=== PATIENT | male | born 1955 | race Two or more races ===

== ENCOUNTER 2017-05-14 16:11 | Emergency (ER) | payer MEDICAID ==
[~2017-05-14] VITALS: Ht 177.8 cm; Wt 97.5 kg
[2017-05-14 17:03] LABS: Basophils # (auto) 0 uL; Basophils % (auto) 0.2 % (0.0-2.0); CONDITION Y; Eosinophils # (auto) 0.3 uL; Eosinophils % (auto) 3.5 % (0.0-7.0); Hematocrit 48.6 % (41.0-53.0); Hemoglobin 16.8 g/dL (13.5-17.5); Lymphocytes # (auto) 1.7 uL; Lymphocytes % (auto) 22.8 % (10.0-50.0); Mean Corpuscular Hemoglobin 31.4 pg (28.0-32.0); Mean Corpuscular Hgb Conc. 34.5 g/dL (32.0-36.0); Mean Corpuscular Volume 90.9 fL (80.0-100.0); Mean Platelet Volume 10.9 fL (7.4-10.4); Monocytes # (auto) 0.5 uL; Monocytes % (auto) 7.2 % (0.0-12.0); Neutrophils # (auto) 4.9 uL; Neutrophils % (auto) 66.3 % (37.0-80.0); Platelet Count (auto) 89 10^3/uL (140-450); Red Cell Distribution Width 13.7 % (11.6-16.0); White Blood Cell 7.4 10^3/uL (4.4-10.8)
[2017-05-14 18:01] LABS: Albumin 3.9 g/dL (3.4-5.0); BUN/Creatinine Ratio 25.8; Bilirubin, Total 2.6 mg/dL (0.2-1.0); Calcium 8.8 mg/dL (8.5-10.1); Total Protein 8.2 g/dL (6.4-8.2)
[2017-05-14 18:08] LABS: Potassium 3.3 mmol/L (3.5-5.1)
[2017-05-14 19:30] VITALS: BP 140/93
[2017-05-16 09:20] LABS: Hepatitis B Surface Antibody Positive
== END 2017-05-14 19:34 | disposition home or self-care (01) ==
LOC: ER 16:15
DX: F20.9 Schizophrenia, unspecified (principal); D69.6 Thrombocytopenia, unspecified; E11.9 Type 2 diabetes mellitus without complications
CPT/HCPCS: 36415; 80053; 85025; 86704; 86706; 86708; 86803; 87340

== ENCOUNTER 2019-04-12 13:03 | Emergency (ER) | payer MEDICAID ==
[~2019-04-12] VITALS: Ht 177.8 cm; Wt 104.3 kg
[~2019-04-12 13:03] MED LIST: ASEN10SU3 SL; ASPI-378 PO; ATOR20TA50 PO; BENZ1TAB2 PO; BUPR-60 PO; CHOL200031 PO; CITA-73 PO; INSU1INJ19 SC; LISI10TA6 PO; LURA1TAB2 PO; METF-929 PO; METO25TA5 PO; OLAN20TA30 PO; TERB250T66 PO
[2019-04-12 13:46] LABS: Basophils # (auto) 0 uL; Basophils % (auto) 0.3 % (0.0-2.0); Eosinophils # (auto) 0.2 uL; Eosinophils % (auto) 1.3 % (0.0-7.0); Hematocrit 27.1 % (41.0-53.0); Hemoglobin 9.3 g/dL (13.5-17.5); Lymphocytes # (auto) 2.6 uL; Lymphocytes % (auto) 19.5 % (10.0-50.0); Mean Corpuscular Hemoglobin 30.3 pg (28.0-32.0); Mean Corpuscular Hgb Conc. 34.2 g/dL (32.0-36.0); Mean Corpuscular Volume 88.5 fL (80.0-100.0); Monocytes # (auto) 0.7 uL; Monocytes % (auto) 5.4 % (0.0-12.0); Neutrophils # (auto) 9.8 uL; Neutrophils % (auto) 73.5 % (37.0-80.0); Nucleated Red Blood Cells % 0.2 %; Platelet Count (auto) 174 10^3/uL (140-450); Red Blood Cells 3.06 10^6/uL (4.5-5.90); White Blood Cell 13.4 10^3/uL (4.4-10.8)
[2019-04-12 14:07] LABS: Albumin 3.4 g/dL (3.4-5.0); Anion Gap 8 (5-15); Aspartate Aminotransferase 20 U/L (15-37); BUN/Creatinine Ratio 46.8; Blood Urea Nitrogen 37 mg/dL (7-18); Calcium 8.3 mg/dL (8.5-10.1); Carbon Dioxide 23 mmol/L (21-32); Chloride 112 mmol/L (98-107); GFR African American 128 mL/min; GFR Non-African American 106 mL/min; Glucose 147 mg/dL (74-106); Potassium 3.7 mmol/L (3.5-5.1); Sodium 143 mmol/L (136-145)
[2019-04-12 14:17] LABS: Alkaline Phosphatase 69 U/L (45-117); Bilirubin, Total 0.8 mg/dL (0.2-1.0); Total Protein 7.2 g/dL (6.4-8.2)
[2019-04-12 14:24] LABS: Alanine Aminotransferase 30 U/L (16-61)
[2019-04-12 16:41] VITALS: BP 130/80
== END 2019-04-12 16:55 | disposition home or self-care (01) ==
LOC: ER 13:03
DX: J40 Bronchitis, not specified as acute or chronic (principal); M25.531 Pain in right wrist; E11.9 Type 2 diabetes mellitus without complications; E78.5 Hyperlipidemia, unspecified; I10 Essential (primary) hypertension; F17.210 Nicotine dependence, cigarettes, uncomplicated; Z79.899 Other long term (current) drug therapy; Z79.82 Long term (current) use of aspirin; Z79.4 Long term (current) use of insulin
CPT/HCPCS: 36415; 70450; 73100; 73120; 80053; 82962; 84484; 85025; 93005

== ENCOUNTER 2019-12-13 20:00 | Inpatient (IN) | payer MEDICAID ==
[~2019-12-13] VITALS: Ht 175.3 cm; Wt 99.8 kg
[2019-12-13] MEDS ORDERED: DEXTROSE 10% 1,000 ML IV ONE (20:15)
[2019-12-13] MEDS ORDERED: DEXTROSE (50%) 50ML SYRG IV ONE ×4 (20:15→21:00)
[2019-12-13] MEDS ORDERED: ACCU-CHEK COMFORT CURVE STRIP VI ONE ×4 (20:15→21:00)
[2019-12-13 22:18] LABS: Neutrophils % (auto) 85.7 % (37.0-80.0); White Blood Cell 9.4 10^3/uL (4.4-10.8)
[2019-12-13 22:19] LABS: Basophils # (auto) 0 10 ^3/uL (0-0.2); Basophils % (auto) 0.1 % (0.0-2.0); Eosinophils # (auto) 0.1 10 ^3/uL (0-0.8); Eosinophils % (auto) 0.8 % (0.0-7.0); Hematocrit 37.8 % (41.0-53.0); Lymphocytes # (auto) 0.6 10 ^3/uL (0.4-5.4); Lymphocytes % (auto) 6.5 % (10.0-50.0); Mean Corpuscular Hemoglobin 29.2 pg (28.0-32.0); Mean Corpuscular Hgb Conc. 34.4 g/dL (32.0-36.0); Monocytes # (auto) 0.6 10 ^3/uL (0-1.3); Monocytes % (auto) 6.9 % (0.0-12.0); Platelet Count (auto) 80 10^3/uL (140-450); Red Blood Cells 4.45 10^6/uL (4.5-5.90); Red Cell Distribution Width 15.6 % (11.8-14.3)
[2019-12-13 22:38] LABS: Chloride 106 mmol/L (98-107); Potassium 3.6 mmol/L (3.5-5.1); Sodium 138 mmol/L (136-145)
[2019-12-13 22:40] LABS: INR 1.15 (0.9-1.15); Partial Thromboplastin Time 29.9 sec (23.64-32.05)
[2019-12-13 22:48] LABS: Alanine Aminotransferase 22 U/L (16-61); Albumin 3.7 g/dL (3.4-5.0); Alkaline Phosphatase 108 U/L (45-117); Anion Gap 6 (5-15); Aspartate Aminotransferase 24 U/L (15-37); BUN/Creatinine Ratio 15.8; Bilirubin, Total 1.2 mg/dL (0.2-1.0); Blood Urea Nitrogen 21 mg/dL (7-18); Carbon Dioxide 26 mmol/L (21-32); GFR African American 70 mL/min; GFR Non-African American 58 mL/min; Magnesium 2.2 mg/dL (1.6-2.6)
[2019-12-13 22:55] LABS: Urine Bacteria NONE SEEN /hpf (None Seen); Urine Blood Negative /uL (Negative); Urine Specific Gravity 1.012 (1.001-1.035); Urine WBC <1 /hpf (0 - 3)
[2019-12-13 22:58] LABS: Glucose 47 mg/dL (74-106)
[2019-12-14] MEDS ORDERED: ACETAMINOPHEN 325 MG TAB PO PRN (02:15)
[2019-12-14] MEDS ORDERED: ONDANSETRON HCL 4 MG/2 ML VIAL IV PRN (02:15)
[2019-12-14] MEDS ORDERED: HYDROcodone-ACET 5/325MG TAB PO PRN (02:15)
[2019-12-14] MEDS ORDERED: MORPHINE SULFATE 4 MG/ML SYR/VIAL IV PRN (02:15)
[2019-12-14] MEDS ORDERED: DOCUSATE SOD 100 MG CAP PO PRN (02:15)
[2019-12-14] MEDS ORDERED: DEXTROSE (50%) 50ML SYRG IV PRN (02:15)
[2019-12-14] MEDS: ACCU-CHEK COMFORT CURVE STRIP VI SCH ×15 (02:38→16:15)
[2019-12-14] MEDS: DEXTROSE 10% 1,000 ML IV SCH ×2 (04:01→15:35)
[2019-12-14 06:39] LABS: Basophils # (auto) 0 10 ^3/uL (0-0.2); Basophils % (auto) 0.3 % (0.0-2.0); Eosinophils # (auto) 0.1 10 ^3/uL (0-0.8); Eosinophils % (auto) 1.8 % (0.0-7.0); Hematocrit 40.8 % (41.0-53.0); Lymphocytes # (auto) 1.3 10 ^3/uL (0.4-5.4); Lymphocytes % (auto) 18.5 % (10.0-50.0); Mean Corpuscular Hemoglobin 28.8 pg (28.0-32.0); Mean Corpuscular Hgb Conc. 34.2 g/dL (32.0-36.0); Mean Corpuscular Volume 84.1 fL (80.0-100.0); Monocytes # (auto) 0.6 10 ^3/uL (0-1.3); Monocytes % (auto) 8.6 % (0.0-12.0); Neutrophils # (auto) 4.8 10 ^3/uL (1.6-8.6); Neutrophils % (auto) 70.8 % (37.0-80.0); Platelet Count (auto) 99 10^3/uL (140-450); Red Blood Cells 4.85 10^6/uL (4.5-5.90); Red Cell Distribution Width 16.1 % (11.8-14.3); White Blood Cell 6.8 10^3/uL (4.4-10.8)
[2019-12-14 06:59] LABS: Calcium 9.2 mg/dL (8.5-10.1); Potassium 3.5 mmol/L (3.5-5.1)
[2019-12-14] MEDS ORDERED: BENZTROPINE MESY 0.5 MG TAB PO SCH (10:00)
[2019-12-14] MEDS ORDERED: ATORVASTATIN 20 MG TAB PO SCH (10:00)
[2019-12-14] MEDS ORDERED: METOPROLOL TARTRATE 25 MG TAB PO SCH (10:00)
[2019-12-14] MEDS ORDERED: ASPirin-EC 81 mg tab PO SCH (10:00)
[2019-12-14] MEDS ORDERED: LISINOPRIL 10 MG TAB PO SCH (10:00)
[2019-12-14] MEDS ORDERED: CITALOPRAM HYDROBR 20 MG TAB PO SCH (10:00)
[2019-12-14 15:00] VITALS: BP 134/90
[2019-12-14] MEDS ORDERED: OLANZapine 5 MG TAB PO SCH (18:00)
[2019-12-14] MEDS ORDERED: LURASIDONE HYDROCHLORIDE 60 MG PO SCH (22:00)
== END 2019-12-14 16:23 | disposition home or self-care (01) | DRG 812 ==
LOC: ER 20:00 → EDBD 20:00 → OVERFLOW 20:01
PROVIDERS: ADMIT Hospitalist; ATTEND Internal Medicine
DX: T38.3X1A Poisoning by insulin and oral hypoglycemic [antidiabetic] drugs, accidental (unintentional), initial encounter (principal); G93.41 Metabolic encephalopathy; E11.649 Type 2 diabetes mellitus with hypoglycemia without coma; G20 Parkinson's disease; F02.80 Dementia in other diseases classified elsewhere, unspecified severity, without behavioral disturbance, psychotic disturbance, mood disturbance, and anxiety; E78.5 Hyperlipidemia, unspecified; I10 Essential (primary) hypertension; Y92.89 Other specified places as the place of occurrence of the external cause; Z79.899 Other long term (current) drug therapy
CPT/HCPCS: 36415; 71045; 80048; 80053; 81001; 82010; 82962; 83036; 83735; 83880; 84443; 84484; 85025; 85610; 85730; 96365; 96376; 99291; G0378